=== PATIENT | male | born 1955 | race Caucasian/White ===

== ENCOUNTER 2023-08-08 17:37 | Observation (INO) ==
[2023-08-08 18:17] LABS: ABS Eosinophils 0.1 10^3/uL (0.0-0.5); ABS Lymphocytes 2.1 10^3/uL (1.0-4.8); ABS Monocytes 0.5 10^3/uL (0.0-1.1); ABS Neutrophils 2.7 10^3/uL (1.5-7.6); ABS Nucleated RBC 0.03 10^3/ul; Eosinophil % 1.3 %; Hematocrit 43.1 % (38-53); Hemoglobin 14.6 g/dL (13.2-16.3); Lymphocyte % 39.2 %; Mean Corpuscular Volume 85.3 fL (80-97); Mean Platelet Volume 7.7 fL (7.5-11.2); Nucleated Red Blood Cells % 0.5 /100 WBC (0.0-0.4); Platelet Count 163 10^3/uL (150-450); Red Blood Count 5.05 10^6/uL (4.06-5.63); Red Cell Distribution Width 13.5 % (12-17); White Blood Count 5.4 10^3/uL (3.6-10.2)
[2023-08-08 19:02] LABS: Albumin 4.3 g/dL (3.2-5.2); Calcium 9.2 mg/dL (8.6-10.3); Magnesium 2.1 mg/dL (1.9-2.7); Potassium 3.9 mmol/L (3.5-5.0); Total Bilirubin 0.7 mg/dL (0.2-1.0)
[2023-08-08 19:08] LABS: Albumin/Globulin Ratio 1.6 (1-3); Globulin 2.7 g/dL (2-4)
[2023-08-08 20:05] LABS: High Sensitivity Troponin 1 Hr 7 pg/mL (<20)
[2023-08-09] MEDS ORDERED: Iohexol 350 (CONTRAST) 500 ML MDV IV ONE (02:22)
[2023-08-09 03:18] LABS: INR 3.37 (0.83-1.13)
[2023-08-09] MEDS ORDERED: DARUNAVIR 800 MG PO SCH (05:00)
[2023-08-09] MEDS ORDERED: DOLUTEGRAVIR 50 MG PO SCH (05:00)
[2023-08-09] MEDS ORDERED: RITONAVIR 100 MG PO SCH (05:00)
[2023-08-09 07:48] LABS: Hematocrit 40.1 % (38-53); Mean Platelet Volume 7.6 fL (7.5-11.2); Platelet Count 145 10^3/uL (150-450)
[2023-08-09 08:58] LABS: HDL Cholesterol 42.6 mg/dL
[2023-08-09] MEDS ORDERED: Regadenoson 0.4 MG/5 ML SYRINGE ONE (09:20)
[2023-08-09 11:06] LABS: TSH Ultra Thyroid Stim Horm 1.89 mcIU/mL (0.34-5.60)
[2023-08-09 11:08] LABS: Free T4 0.8 ng/dL (0.61-1.12)
[2023-08-09] MEDS ORDERED: Warfarin - No Order Today **NOTE FOLLOW UP ONE (17:00)
[2023-08-09] MEDS ORDERED: Warfarin DAILY REMINDER **NOTE FOLLOW UP SCH (17:00)
[2023-08-09] MEDS ORDERED: Warfarin per PHARMACY **NOTE FOLLOW UP SCH (17:00)
[2023-08-09 19:14] VITALS: BP 117/69
[2023-08-10] MEDS ORDERED: RITONAVIR 100 MG PO SCH (09:00)
[2023-08-10] MEDS ORDERED: DARUNAVIR 800 MG PO SCH (09:00)
[2023-08-10] MEDS ORDERED: DOLUTEGRAVIR 50 MG PO SCH (09:00)
[2023-08-11 13:30] LABS: Anaplasma phagocytophilum Negative (Negative); B. miyamotoi PCR, B Negative (Negative); Babesia divergens/MO-1 Negative (Negative); Babesia ducani Negative (Negative); Ehrlichia chaffeensis Negative (Negative); Ehrlichia ewingii/canis Negative (Negative); Ehrlichia muris eauclairensis Negative (Negative)
== END 2023-08-09 18:20 | disposition home or self-care (01) ==
LOC: ED 17:37 → EDHOLD 17:37 → SUATTDRO 08-09 05:02 → EDHOLD 08-09 05:02 → INTOOBSV 08-09 05:02 → EDHOLD 08-09 18:20
PROVIDERS: ADMIT Internal Medicine; ATTEND Internal Medicine